=== PATIENT | female | born 1965 | race Caucasian/White ===

== ENCOUNTER → 2017-05-01 | Outpatient (CLI) | payer OTHER | LOC: FIMAGING 15:54 | PROVIDERS: ATTEND Obstetrics & Gynecology Gynecology | DX: Z12.31 Encounter for screening mammogram for malignant neoplasm of breast (principal) | CPT/HCPCS: G0202 ==

== ENCOUNTER → 2018-05-02 | Outpatient (CLI) | payer OTHER | LOC: FIMAGING 08:46 | PROVIDERS: ATTEND Obstetrics & Gynecology Gynecology | DX: Z12.31 Encounter for screening mammogram for malignant neoplasm of breast (principal) ==

== ENCOUNTER → 2018-05-04 | Outpatient (CLI) | payer OTHER | LOC: FIMAGING 08:56 | PROVIDERS: ATTEND Obstetrics & Gynecology Gynecology | DX: R92.8 Other abnormal and inconclusive findings on diagnostic imaging of breast (principal) ==

== ENCOUNTER 2019-03-17 20:27 | Emergency (ER) | payer OTHER ==
[2019-03-17 20:33] VITALS: BP 125/72
--- NOTE | 2019-03-17 20:39 | EDPHY ---
H & P Stated Complaint: Fall, R elbow pain, wrist pain, Time Seen by Provider: 03/17/19 20:37 HPI/ROS: HPI: This is a 53-year-old female who presents with Chief Complaint: Fall, R elbow pain, wrist pain, Location: Right elbow and right wrist Quality: Injury and pain Duration: Prior to arrival Signs and Symptoms: No bleeding, no radiation, no numbness, no weakness, no tingling, no incontinence, + decreased range of motion, no swelling, + pain, no fever Timing: Acute Severity: 06/01 Context: Patient presents with accidentally colliding with her son in the kitchen prior to arrival and falling on right outstretched hand. Patient is right-hand dominant and complains of right wrist and right elbow injury and pain. She had a sling at home and placed her right upper extremity into the sling and applied ice. She reports increased pain with flexion extension of her elbow and wrist. Denies LOC/head injury/neck pain/dizziness/nausea/vomiting /amnesia. Does not take any blood thinners. Modifying Factors: See above Comment: ROS: A comprehensive 10 system review of systems is otherwise negative aside from elements mentioned in the history of present illness. MEDICAL/SURGICAL/SOCIAL HISTORY: Medical history: Hypothyroidism Surgical history: Denies Social history: with children. Nonsmoker. Denies drug use. CONSTITUTIONAL: Appears uncomfortable, middle-aged white female, awake and alert, no obvious distress HEENT: Atraumatic and normocephalic. NECK: supple, no midline tenderness, flexion 45 degrees, extension 45 degrees, right and left lateral flexion 45 degrees. No meningismus. Cardiovascular: Normal S1/S2, regular rate, regular rhythm, without murmur rub or gallop. PULMONARY/CHEST: Symmetrical and nontender. no crepitus. Clear to auscultation bilaterally. Good air movement. No accessory muscle usage. ABDOMEN: Soft, nondistended, nontender, no ecchymosis. EXTREMITIES: 2/2 pulses, strength 5/5, right SHOULDER: Arc test abduction to 180, abduction to 45, horizontal flexion 130, horizontal extension to 45, deltoid strength 5/5. No pain with Neer test/Hayes test (impingement). No Tenderness to palpation over AC joint. no clavicle deformity appreciated. Right ELBOW: Full extension to 180, flexion to 150, moderate tenderness over medial epicondyle, moderate tenderness over lateral epicondyle, no effusion. Low right WRIST: Extension to 70, flexion to 80, radial deviation to 20 degree, ulnar deviation to 30, no scaphoid tenderness, no tenderness over ulnar styloid, no tenderness over radial styloid, no pain with Ebenezer test , no pain with Phalen test, no pain with Tinel test DIP/PIP/MCP flexion/ extension intact with good light touch sensation. no deformities, no clubbing, no cyanosis, no edema. NEUROLOGICAL: no focal neuro deficits. GCS 15. Light touch sensation intact. SKIN: Warm and dry, no erythema. no rash. Good capillary refill. Source: Patient Exam Limitations: No limitations - Personal History Current Tetanus Diphtheria and Acellular Pertussis (TDAP): Yes - Medical/Surgical History Hx Asthma: No Hx Chronic Respiratory Disease: No Hx Diabetes: No Hx Cardiac Disease: No Hx Renal Disease: No Hx Cirrhosis: No Hx Alcoholism: No Hx HIV/AIDS: No Hx Splenectomy or Spleen Trauma: No Other PMH: Hypothyroid - Social History Smoking Status: Never smoked Constitutional: Initial Vital Signs Temperature (C) 36.8 C 03/17/19 20:31 Heart Rate 63 03/17/19 20:31 Respiratory Rate 17 03/17/19 20:31 Blood Pressure 125/72 H 03/17/19 20:31 O2 Sat (%) 99 03/17/19 20:31 O2 Delivery Mode Room Air Allergies/Adverse Reactions: amoxicillin Allergy (Verified 03/17/19 20:32) sulfamethoxazole [From Bactrim] Allergy (Verified 03/17/19 20:32) trimethoprim [From Bactrim] Allergy (Verified 03/17/19 20:32) Home Medications: Medication Instructions Recorded Levothyroxine 03/17/19 Medical Decision Making - Diagnostics Imaging Results: Imaging Impressions Elbow X-Ray 03/17/19 20:40 Impression: 1. No osseous abnormality seen right elbow. 2. Mild elbow joint effusion suspected. If symptoms persist after 7-10 days, consider repeat imaging to evaluate for possible occult fracture. Wrist X-Ray 03/17/19 20:40 Impression: Normal right wrist series. Procedures: Procedure: Splint placement. A right Velcro thumb spica splint was applied. After application of the splint I returned and re-examined the patient. The splint was adequately immobilizing the joint and distal to the splint the patient's circulation and sensation was intact. ED Course/Re-evaluation: Vital signs reviewed and stable upon arrival. Right elbow x-ray and right wrist x-ray ordered and my read shows no fracture, no dislocation Given Percocet x2 with adequate relief Patient already has a sling and will continue to use as needed; right Velcro thumb spica splint placed with orthopedic follow-up p.r.n. Given Percocet prepack No signs of neurovascular compromise/tenting of skin/compartment syndrome/ extremities and joints examined above and below area of concern and are neurovascularly intact. This patient was seen under the supervision of my secondary supervising physician. I evaluated and cared for this patient independently. Differential Diagnosis: Differential diagnosis includes but is not limited to radial fracture, ulnar fracture, supracondylar fracture, scaphoid fracture, phalanx fracture, metacarpal fracture, sprain, contusion, nerve injury. - Data Points Medications Given: Discontinued Medications Oxycodone/Acetaminophen (Percocet 5/325) 2 tab PO EDNOW ONE Stop: 03/17/19 20:41 Last Admin: 03/17/19 20:59 Dose: 1 tab Departure - Departure Disposition: Home, Routine, Self-Care Clinical Impression: Injury of right elbow region Right wrist sprain Qualifiers: Encounter type: initial encounter Qualified Code(s): S63.501A - Unspecified sprain of right wrist, initial encounter Condition: Good Instructions: Oxycodone/Acetaminophen (By mouth), How to Use a Sling (ED), Wrist Sprain (ED) Additional Instructions: Wear the sling while and wrist splint out of bed until pain free or seen by Orthopedics. Take Tylenol 650 mg every 4 hours and/or Ibuprofen 600 mg every 8 hours with food as needed for pain. Use Percocet every 6 hours as needed for severe/break through pain. Do not use Tylenol and Percocet concomitantly. Apply ice for 30 minutes at a time; 2-3 times per day for the next 1-2 days. Follow up with Orthopedics in 7-10 days if symptoms persist at which time they will evaluate and recommend with you if conservative management versus further imaging is indicated. The x-rays obtained in the emergency department today demonstrate no evidence of an obvious fracture. Sometimes fractures are not obvious on the initial set of x-rays performed in the ED. For this reason, you should have repeat x-rays performed in 7-10 days if you are having any pain exclude the possibility of an occult fracture. Referrals: Yanelis Boone MD [Primary Care Provider] - As per Instructions Robson Barahona MD [Medical Doctor] - As per Instructions
[2019-03-17] MEDS ORDERED: OXYCODONE/APAP 5/325 TAB PO ONE (20:40)
[2019-03-17] MEDS ORDERED: OXYCODONE/APAP 5/325MG PREPACK#4 BTL TAKEHOME ONE (22:20)
== END 2019-03-17 22:36 | disposition home or self-care (01) ==
DX: S63.501A Unspecified sprain of right wrist, initial encounter (principal); E03.9 Hypothyroidism, unspecified; W03.XXXA Other fall on same level due to collision with another person, initial encounter; Y92.000 Kitchen of unspecified non-institutional (private) residence as the place of occurrence of the external cause
CPT/HCPCS: A4565